=== PATIENT | male | born 1980 | race Two or more races ===

== ENCOUNTER 2024-09-21 17:24 | Emergency (ER) | payer MEDICAID, SELFPAY ==
[2024-09-21 17:28] VITALS: PULSE 78; RESP 18; O2SAT 100; BMI 24.1
--- NOTE | 2024-09-21 17:35 | EKG_ITS ---
[facility] Test Date: 2024-09-21 Pat Name: LINDSAY CARL Department: Room: - Gender: Male Dependency Case Manager: : 1980 Requested By: Katie Mcgovern Order Number: [id number] Reading MD: Katie Mcgovern Measurements Intervals [place] Rate: 56 P: 57 W[place]: 140 QRS: 21 QRSD: 106 T: 22 QT: 426 QTc: 412 Interpretive Statements SINUS BRADYCARDIA No previous ECG available for comparison /store/S0/[id number]/ecg/[id number].pdf
[2024-09-21 17:47] VITALS: BP 124/85; PULSE 62; RESP 16; TEMP 36.7; O2SAT 100
--- NOTE | 2024-09-21 17:48 | EDNOTE_ITS ---
ED Syncope RME/HPI General Chief Complaint: Syncope / Near Syncope Stated Complaint: NEAR SYNCOPY Time Seen by Provider: 09/21/24 17:36 Arrival date/time: 09/21/24 17:24 Limitations: no limitations RME / HPI RME / HPI narrative: DR. OVALLES MAIN ED EVALUATION: 44 year old male with past medical history significant for hypotension, ADHD, degenerative cervical, thoracic and lumbar disease, spinal stenosis, asthma, anxiety and PTSD presents to the Emergency Department [facility] from home with complaint of near syncopal episode. Patient initially did not want to come in and EMS did a gait test and EMS witnessed the near syncopal episode, no trauma. Patient initially called an ambulance due to dizziness and generalized weakness after taking a new ADHD medication called Atomoxetine at 320 PM. Per EMS, vitals were BP of 150/82, HR of 74, and sattting on 100% on room air. Patient now reports he has a severe headache. Related Data Allergies Allergy/AdvReac Type Severity Reaction Status Date / Time No Known Allergies Allergy Verified 09/21/24 17:56 Review of Systems Review of Systems Systems Reviewed: All systems reviewed, normal except as documented Narrative Review of Systems: GEN: No fever, no chills, no weight loss EYES: No discharge, no visual changes, no pain HEENT: No ear pain, no congestion, no sore throat PULM: No shortness of breath, no cough, no congestion CV: No chest pain, no dyspnea on exertion, no palpitations GI: No nausea, no vomiting, no diarrhea, no pain, no constipation : No frequency, no urgency and no dysuria MUSC/SKEL: No joint pain, no back pain SKIN: No rash PSYCH: No hallucinations, no depression HEME/LYMPH: No easy bleeding or bruising tendencies NEURO: + generalized weakness, + headache, + near syncopal episode, + dizziness Past Medical History Social History SMOKING STATUS: Never smoker SUBSTANCE USE: does not use ALCOHOL: Never ED Exam General Limitations: Present no limitations General appearance: Present alert, in no apparent distress and other (wears glasses) Head Head exam: Present atraumatic, normocephalic and normal inspection Eye Eye exam: Present normal appearance, PERRL and EOMI ENT ENT exam: Present normal exam, normal oropharynx and mucous membranes moist Neck Neck exam: Present normal inspection, full ROM and trachea midline Chest Chest inspection: Present normal inspection and symmetric chest wall rise Respiratory Respiratory exam: Present normal lung sounds bilaterally Cardiovascular Cardiovascular exam: Present regular rate, normal rhythm and normal heart sounds Abdominal Exam Abdominal exam: Present soft and normal bowel sounds Extremities Exam Extremities exam: Present normal inspection and full ROM Back Exam Back exam: Present normal inspection and full ROM Neurological Exam Neurological exam: Present alert, oriented X3 and CN II-XII intact Psychiatric Psychiatric exam: Present normal affect and normal mood Skin Skin exam: Present warm, dry, intact and normal color Course Course Course Narrative: 1800: Patient was signed out to Dr. Ordaz. Past medical, surgical, social and family history reviewed. Vitals and home medications reviewed. Results and treatment plan discussed. They will assume the care of the patient at this time and will follow the patient, pending work-up and final disposition. Quality Measures none Orders Category Date Time Status Table Keeper STAT Care 09/21/24 17:48 Completed EKG (ED ONLY) *Do not use* NOW Care 09/21/24 17:35 Completed Orthostatic Vitals STAT Care 09/21/24 17:[address] head/brain wo con Stat Exams 09/21/24 17:49 Completed EKG (ED Only) Stat Exams 09/21/24 17:35 Draft CBC Stat Lab 09/21/24 18:01 Completed Comprehensive Metabolic Panel Stat Lab 09/21/24 18:01 Completed Partial Thromboplastin Time Stat Lab 09/21/24 18:01 Completed Prothrombin Time with INR Stat Lab 09/21/24 18:01 Completed Troponin I Stat Lab 09/21/24 18:01 Completed Urinalysis Stat Lab 09/21/24 18:55 Completed Acetaminophen Tab [Tylenol ES Tab] Med 09/21/24 20:25 Discontinued 1,000 mg PO X1 ONE Famotidine Inj [Pepcid Inj] Med 09/21/24 17:53 Discontinued 20 mg IVP X1 ONE Ketorolac Inj [Toradol Inj] Med 09/21/24 17:47 Discontinued 30 mg IVP X1 ONE LORazepam [Ativan Inj] Med 09/21/24 19:35 Discontinued 0.5 mg IVP X1 ONE Ondansetron Inj [Zofran Inj] Med 09/21/24 17:53 Discontinued 4 mg IV X1 ONE Sodium Chloride 0.9% 500 ml [Ns] 500 ml Med 09/21/24 17:47 Discontinued IV 999 mls/hr Vital Signs Vital signs: Vital Signs Temperature 98.1 F 09/21/24 17:47 Pulse Rate 62 09/21/24 17:47 Respiratory Rate 16 09/21/24 17:47 Blood Pressure 124/85 H 09/21/24 17:47 Pulse Oximetry (%) 100 09/21/24 17:47 Oxygen Delivery Method Room Air 09/21/24 17:47 Procedures -ED EKG Interpretation #1: Date of EK09/21/24 Time of EK:51 Rate: 56 Interpretation: Interpreted by me Additional EKG comment: sinus bradycardia, rate 56, no STEMI Syncope MDM Narrative MDM Narrative:: IJigna am scribing for and in the presence of Dr. Ovalles. Patient data External records reviewed:: EMS form Clinical information provided by:: patient and EMS Social determinants that could affect healthcare access:: none Patient has the following chronic illnesses:: hypotension, ADHD, degenerative cervical, thoracic and lumbar disease, spinal stenosis, asthma, anxiety and PTSD How is presenting disease/condition affected by chronic disease/condition?: exacerbated by Evaluation data The following diagnostics were reviewed and interpreted by me:: lab results, radiology exam(s) and EKG tracing(s) Lab and/or radiology exams considered but not ordered:: none Interpretation Summary: Pending workup, patient signout to the plant operator/shift supervisor provider. Medications / Prescriptions Medications or Prescriptions considered but not ordered:: none Medication administrations:: Medication Administration History Discontinued Medications Acetaminophen (Acetaminophen 500 Mg Tablet) 1,000 mg PO X1 ONE Stop: 09/21/24 20:26 Last Admin: 09/21/24 20:41 Dose: 1,000 mg Documented By: JOE Famotidine (Famotidine Inj 10 Mg/Ml Vial 2 Ml) 20 mg IVP X1 ONE Stop: 09/21/24 17:54 Last Admin: 09/21/24 18:01 Dose: 20 mg Documented By: STEPHAN Sodium Chloride (Ns) 500 mls @ 999 mls/hr IV .Q31M ONE Stop: 09/21/24 18:17 Last Infusion: 09/21/24 19:00 Dose: Infused Documented By: Admin: 09/21/24 18:02 Dose: 999 mls/hr Documented By: STEPHAN Ketorolac Tromethamine (Ketorolac Inj 30 Mg/Ml Vial) 30 mg IVP X1 ONE Stop: 09/21/24 17:48 Last Admin: 09/21/24 18:02 Dose: 30 mg Documented By: STEPHAN Lorazepam (Lorazepam 2 Mg/Ml Vial) 0.5 mg IVP X1 ONE Stop: 09/21/24 19:36 Last Admin: 09/21/24 20:19 Dose: 0.5 mg Documented By: JOE Ondansetron HCl (Ondansetron Inj 2 Mg/Ml Inj 2 Ml) 4 mg IV X1 ONE; Protocol Stop: 09/21/24 17:54 Last Admin: 09/21/24 18:02 Dose: 4 mg Documented By: STEPHAN see above if any Consultations Consultation(s) initiated? (list below): No Diagnosis Syncope Differential Diagnosis: vasovagal syncope, dehydration and other (adverse drug reaction, viral syndrome) Most likely diagnosis given after review of the tests above:: No official diagnoses at this time, still pending diagnostic tests. Patient signout to the plant operator/shift supervisor provider. Admission Indicated Admission indicated?: not indicated Explain why admission is indicated or not indicated:: No final disposition plan at this time, still pending diagnostic tests. Patient signout to the plant operator/shift supervisor provider. Admission Request Was there a request for admission?: No Disposition Plan Disposition Plan: other (specify) (Patient signout to the plant operator/shift supervisor provider.) Discharge Plan Plan Patient Disposition: HOME (Self Care) Disposition Comment: Stable for discharge Patient condition on transfer: Stable Prescriptions/Referrals Referrals: Reid Day, MATERNAL FETAL PHYSICIAN [Primary Care Provider] - In 1 week Problem List Clinical Impression: Medication adverse effect Patient/Caregiver Discharge Instructions Discharge Activity: activity as tolerated Education Materials: ED Drug Reaction, Other Additional Instructions: Please return to the emergency department if you have any worsening or any further medical problems. Otherwise you should follow-up with your primary care doctor within the next several days. Print Language: Montserratian Stand Alone Forms: Mely Award Info., Patient Portal Info Letter
--- NOTE | 2024-09-21 17:49 | XR_ITS ---
Examination: CT brain head without contrast. 2-D sagittal coronal reconstructions Date and time of exam:The intrapelvic today at 1812 hrs. Indications: Syncopal episode today CTDI: vol (mGy):53.5 DLP: (mGycm):1140 Technique: Multiple CT axial sections of the brain have been obtained, 5 mm slice thickness. Contrast has not been administered. 2-D sagittal, coronal reconstructions have been obtained Low dose protocols were performed. One or more of the following dose reduction techniques were used; automated exposure control, adjustment of the mA and/or KV according to patient size, use of iterative reconstruction technique. Findings: No significant ventricular enlargement. Intra-axial or extra-axial hemorrhage density is not seen. No mass effect or midline shift Basal cisterns are not remarkable. Fourth ventricle is midline. Cranial vault intact. Impression: Negative for acute hemorrhage, mass effect or midline shift Advise clinical correlation and follow-up accordingly
[2024-09-21] MEDS: FAMOTIDINE INJ 10 MG/ML VIAL 2 ML 20 MG IVP (18:01)
[2024-09-21] MEDS: KETOROLAC INJ 30 MG/ML VIAL IVP (18:02)
[2024-09-21] MEDS: ONDANSETRON INJ 2 MG/ML INJ 2 ML 4 MG IV (18:02)
[2024-09-21] MEDS: SODIUM CHLORIDE 0.9% 500 ML 500 ML 999 ML IV (18:02)
--- NOTE | 2024-09-21 18:17 | PD.EDADDENDU ---
Emergency Room Addendum Addendum Narrative: 1800: Care assumed from Dr. Mahajan, the previous shift emergency physician. Past medical, surgical, social and family history reviewed. Vitals and home medications reviewed. I will assume the care of the patient at this time, pending remainder of diagnostic tests, including head CT, and final disposition. Please refer to the emergency department record for history and examination from initial visit.? 44 year old male with past medical history significant for hypotension, ADHD, degenerative cervical, thoracic and lumbar disease, spinal stenosis, asthma, anxiety and PTSD presents to the Emergency Department [facility] with complaints of near syncopal episode, dizziness and generalized weakness after taking a new ADHD medication called Atomoxetine at 320 PM. Patient also has a headache. Physical exam by me shows patient under no acute distress at this time. 2049: Patient remains clinically stable throughout the emergency department visit. Re-assessment at the time of disposition demonstrates that the patient is in no acute distress. We reviewed all the results, analysis, and treatment plans. Patient is amenable to discharge. Strict return precautions were outlined. Patient was discharged in stable condition. Diagnoses: -ED drug reaction -Anxiety RADIOLOGY Procedure(s): CT head/brain wo con Accession Number(s): [id number] cc: Anthony Mahajan MD; Buster Jett MD~ Examination: CT brain head without contrast. 2-D sagittal coronal reconstructions Date and time of exam:The intrapelvic today at 1812 hrs. Indications: Syncopal episode today CTDI: vol (mGy):53.5 DLP: (mGycm):1140 Technique: Multiple CT axial sections of the brain have been obtained, 5 mm slice thickness. Contrast has not been administered. 2-D sagittal, coronal reconstructions have been obtained Low dose protocols were performed. One or more of the following dose reduction techniques were used; automated exposure control, adjustment of the mA and/or KV according to patient size, use of iterative reconstruction technique. Findings: No significant ventricular enlargement. Intra-axial or extra-axial hemorrhage density is not seen. No mass effect or midline shift Basal cisterns are not remarkable. Fourth ventricle is midline. Cranial vault intact. Impression: Negative for acute hemorrhage, mass effect or midline shift Advise clinical correlation and follow-up accordingly Dictated By: Buster Jett MD
[2024-09-21 18:20] LABS: Basophils # (Auto) 0.1 Thou/mm3 (0.0-0.2); Basophils % (Auto) 1 % (0-2.5); Eosinophils % (Auto) 0 % (0-10); Hematocrit 38.9 % (41.0-53.0); Immature Granulocytes % (Auto) 1 % (0-0); Immature Granulocytes Auto 0.06 Thou/mm3 (0.00-0.00); Lymphocytes # (Auto) 1.3 Thou/mm3 (1.0-4.8); Lymphocytes % (Auto) 11 % (10-50); Mean Corpuscular Hemoglobin 31.9 pg (25.0-35.0); Mean Corpuscular Volume 89 fL (80-100); Monocytes % (Auto) 9 % (0-12); Neutrophils # (Auto) 8.9 Thou/mm3 (1.8-7.7); Neutrophils % (Auto) 79 % (37-80); Nucleated Red Blood Cell % 0 /100 WBC (0); Platelet Count 291 Thou/mm3 (140-440); RDW Standard Deviation 39.7 fL (35.1-43.9); Red Blood Count 4.39 Miln/mm3 (4.50-5.90); White Blood Count 11.4 Thou/mm3 (3.8-10.6)
[2024-09-21 18:33] LABS: INR 1.1 (0.9-1.3); Prothrombin Time 11.8 Seconds (9.0-12.2)
[2024-09-21 18:40] LABS: Alanine Aminotransferase 15 U/L (10-49); Albumin, Serum 4.5 gm/dL (3.5-5.0); Albumin/Globulin Ratio 1.7 (1.2-2.2); Alkaline Phosphatase 59 U/L (46-116); Anion Gap 11 (7-16); Aspartate Amino Transferase 21 U/L (0-34); BUN/Creatinine Ratio 14 Ratio (12-20); Bilirubin,Total 0.6 mg/dL (0.3-1.2); Blood Urea Nitrogen 14 mg/dL (9-23); Calcium 10.3 mg/dL (8.3-10.6); Calcium (Corrected) 10.3 mg/dL (8.5-10.1); Carbon Dioxide 22.7 mMol/L (20.0-31.0); Chloride 104 mMol/L (98-107); Estimated Creatinine Clearance 107.6 mL/min (>60); Globulin 2.6 gm/dL (2.3-3.5); Glucose 107 mg/dL (74-106); Osmolality,Calculated 276 (275-295); Potassium 3.5 mMol/L (3.4-5.1); Sodium 138 mMol/L (136-145); Total Protein 7.1 gm/dL (5.7-8.2); Troponin I < 0.002 ng/mL (0.0-0.045); eGFR > 60 See Note
[2024-09-21 19:04] LABS: Collection Type, Urine Clean Catch; RBC,Urine 0 /hpf (0-3); Squamous Epithelial Cell,Urine 0 /hpf (0-5); WBC,Urine 0 /hpf (0-5)
[2024-09-21 19:15] LABS: Bacteria,Urine Rare; Bilirubin,Urine Negative (Negative); Blood,Urine Negative (Negative); Clarity,Urine Clear (Clear/Hazy); Color,Urine Lt-Yellow (Lt Yel-Yel); Glucose, Urine Negative (Negative); Ketones,Urine Negative (Negative); Leukocyte Esterase,Urine Negative (Negative); Nitrite,Urine Negative (Negative); PH,Urine 7.5 (5.0-7.0); Protein,Urine Negative (Neg - Trace); Specific Gravity,Urine 1.008 (1.001-1.035); Urobilinogen,Urine Negative mg/dL (0.0-1.0)
[2024-09-21 19:55] VITALS: BP 106/83; PULSE 70; RESP 15; TEMP 36.6; O2SAT 99
[2024-09-21 19:56] VITALS: BP 103/60; BP 108/64; BP 110/73; PULSE 62; PULSE 70; PULSE 71
[2024-09-21 20:07] VITALS: PULSE 58
[2024-09-21] MEDS: LORazepam 2 MG/ML VIAL 0.5 MG IVP (20:19)
[2024-09-21] MEDS: ACETAMINOPHEN 500 MG TABLET 1000 MG PO (20:41)
== END 2024-09-21 21:01 | disposition home or self-care (01) ==
PROVIDERS: Family Medicine; Emergency Provider Emergency Medicine; PCP Nurse Practitioner Family
DX: R55 Syncope and collapse (principal); T43.215A Adverse effect of selective serotonin and norepinephrine reuptake inhibitors, initial encounter; F90.9 Attention-deficit hyperactivity disorder, unspecified type; J45.909 Unspecified asthma, uncomplicated; F41.9 Anxiety disorder, unspecified
CPT/HCPCS: 36415; 70450; 80053; 81001; 84484; 85025; 85610; 85730; 93005; 96361; 96374; 96375; 99284; J1885; J2060; J2405; J3490; J7040; A9270

== ENCOUNTER 2025-05-21 05:19 | Emergency (ER) | payer MEDICAID, SELFPAY ==
[2025-05-21 05:24] VITALS: BMI 22.4
[2025-05-21 05:32] VITALS: BP 136/90; PULSE 67; RESP 19; TEMP 36.5; O2SAT 98
--- NOTE | 2025-05-21 05:41 | XR_ITS ---
EXAMINATION: PA chest single view TECHNIQUE: Upright PA chest single view Date and time: May 21, 2025, 0541 hours INDICATIONS: Chest pain today. FINDINGS: Normal heart size The lungs are clear. The osseous structures are intact IMPRESSION: No active disease
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
[2025-05-21 06:32] LABS: Influenza A Ag Negative; Influenza B Ag Negative
[2025-05-21 06:53] LABS: Lactate (Lactic Acid) 0.6 mMol/L (0.4-2.0)
[2025-05-21 06:54] LABS: Collection Type, Urine Clean Catch
[2025-05-21 06:54] LABS: Basophils # (Auto) 0.1 Thou/mm3 (0.0-0.2); Basophils % (Auto) 1 % (0-2.5); Eosinophils # (Auto) 0.0 Thou/mm3 (0.0-0.5); Eosinophils % (Auto) 0 % (0-10); Hematocrit 39.6 % (41.0-53.0); Hemoglobin 13.8 g/dL (13.5-16.0); Immature Granulocytes Auto 0.05 Thou/mm3 (0.00-0.00); Lymphocytes # (Auto) 1.3 Thou/mm3 (1.0-4.8); Lymphocytes % (Auto) 10 % (10-50); Mean Corpuscular HGB Conc 34.8 g/dl (31.0-37.0); Mean Corpuscular Hemoglobin 32.2 pg (25.0-35.0); Mean Corpuscular Volume 92 fL (80-100); Monocytes # (Auto) 0.9 Thou/mm3 (0.0-0.8); Monocytes % (Auto) 7 % (0-12); Neutrophils # (Auto) 10.3 Thou/mm3 (1.8-7.7); Neutrophils % (Auto) 82 % (37-80); Nucleated Red Blood Cell # 0.00 Thou/mm3 (0.00-0.00); Nucleated Red Blood Cell % 0 /100 WBC (0); Platelet Count 311 Thou/mm3 (140-440); RDW Standard Deviation 42.8 fL (35.1-43.9); Red Blood Count 4.29 Miln/mm3 (4.50-5.90); White Blood Count 12.6 Thou/mm3 (3.8-10.6)
[2025-05-21 07:02] LABS: Bilirubin,Urine Negative (Negative); Blood,Urine Negative (Negative); Clarity,Urine Clear (Clear/Hazy); Color,Urine Lt-Yellow (Lt Yel-Yel); Culture Indicated,Urine Not Indicated; Glucose, Urine Negative (Negative); Ketones,Urine 1+ (Negative); Leukocyte Esterase,Urine Negative (Negative); Nitrite,Urine Negative (Negative); PH,Urine 8.0 (5.0-7.0); Protein,Urine 1+ (Neg - Trace); RBC,Urine 5 /hpf (0-3); Specific Gravity,Urine 1.029 (1.001-1.035); Squamous Epithelial Cell,Urine < 1 /hpf (0-5); Urobilinogen,Urine Negative mg/dL (0.0-1.0); WBC,Urine 1 /hpf (0-5)
[2025-05-21 07:03] LABS: Sperm,Urine Present
[2025-05-21 07:23] LABS: Alanine Aminotransferase 12 U/L (10-49); Albumin, Serum 5.0 gm/dL (3.5-5.0); Albumin/Globulin Ratio 2.8 (1.2-2.2); Alkaline Phosphatase 55 U/L (46-116); Anion Gap 6 (7-16); Aspartate Amino Transferase 19 U/L (0-34); BUN/Creatinine Ratio 13 Ratio (12-20); Bilirubin,Total 0.6 mg/dL (0.3-1.2); Blood Urea Nitrogen 12 mg/dL (9-23); Calcium 9.4 mg/dL (8.3-10.6); Calcium (Corrected) 9.4 mg/dL (8.5-10.1); Carbon Dioxide 27.9 mMol/L (20.0-31.0); Chloride 108 mMol/L (98-107); Creatinine (Component) 0.9 mg/dL (0.6-1.3); Estimated Creatinine Clearance 114.2 mL/min (>60); Globulin 1.8 gm/dL (2.3-3.5); Glucose 110 mg/dL (74-106); Lipase 27 U/L (12-53); Osmolality,Calculated 283 (275-295); Potassium 4.2 mMol/L (3.4-5.1); Procalcitonin < 0.04 ng/ml (0.0-0.49); Sodium 142 mMol/L (136-145); Total Protein 6.8 gm/dL (5.7-8.2); eGFR > 60 See Note
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
[2025-05-21 07:32] VITALS: BP 135/81; PULSE 68; RESP 18; TEMP 36.8; O2SAT 96
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
[2025-05-21] MEDS: METOCLOPRAMIDE INJ 5 MG/ML VIAL 2 ML 10 MG IVP (07:59)
[2025-05-21] MEDS: ACETAMINOPHEN IVPB 1,000 MG/100 ML VIAL 250 MG IV (08:14)
[2025-05-21 09:56] VITALS: BP 125/70; PULSE 63; RESP 16; TEMP 36.8; O2SAT 96
[2025-05-21 10:52] LABS: Amphetamine/Methamp Scrn,U Negative (Negative); Barbiturate Screen,Urine Negative (Negative); Benzodiazepines Screen,Urine Negative (Negative); Benzoylecgonine Screen, Ur Negative (Negative); Fentanyl Screen,Urine Negative (Negative); Opiate Screen,Urine Negative (Negative); THC Screen,Urine Positive (Negative)
[2025-05-21 11:08] VITALS: BP 110/67; PULSE 72; RESP 16; O2SAT 97
== END 2025-05-21 11:13 | disposition home or self-care (01) ==
PROVIDERS: Physician Assistant; Emergency Provider Family Medicine; PCP Student in an Organized Health Care Education/Training Program
DX: G43.909 Migraine, unspecified, not intractable, without status migrainosus (principal); J44.9 Chronic obstructive pulmonary disease, unspecified; M50.323 Other cervical disc degeneration at C6-C7 level
CPT/HCPCS: 36415; 70450; 71045; 72040; 73130; 80053; 80307; 81001; 83605; 83690; 84145; 85025; 87502; 87635; 96365; 96375; 99284; J0131; J1200; J2765